=== PATIENT | female | born 1995 | race Caucasian/White ===

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

== ENCOUNTER 2017-06-19 22:05 | Emergency (ER) | payer MEDICAID ==
[~2017-06-19] VITALS: Ht 167.6 cm; Wt 60.0 kg
[~2017-06-19 22:05] MED LIST: DICL75TA PO
[2017-06-19 22:08] VITALS: BP 132/73; PULSE 95; RESP 16; TEMP 98; O2SAT 100
--- NOTE | 2017-06-19 22:22 | PD ---
HPI Chief Complaint: Injury Time Seen by Provider: 22:22 Travel History International Travel<30 days: No Contact w/Intl Traveler<30days: No Traveled to known affect area: No History of Present Illness HPI 21-year-old female presents emergency department with right posterior shoulder which started several days ago. Patient denies any specific injury but now that she is working at [employer] it is aggravated. Patient states pain is worse with certain movements, and worse first thing in the morning. Patient is mainly in the right posterior upper shoulder, not in the neck. Patient denies weakness or tingling in the right arm. Patient states she has been trying heat and ice with heat working somewhat better. She has also been taking ibuprofen with mild relief. Patient is here as it was worse after working today. Pain is currently about a 7 out of 10. She has no known drug allergies PFSH Past Medical History Diminished Hearing: No Medical other: Yes (Cerebral Palsy) Tetanus Vaccination: < 5 Years Influenza Vaccination: Yes ?: Not LMP: 06/19/2017 : 0 Past Surgical History Surgical History: No Previous Surgery Social History Alcohol Use: No Tobacco Use: Yes (1PPD) Substance Use: No Allergies-Medications (Allergen,Severity, Reaction): Coded Allergies: No Known Allergies (Unverified Adverse Reaction, Unknown, 06/19/17) Reported Meds & Prescriptions Reported Meds & Active Scripts Active Diclofenac Sodium DR (Diclofenac Sodium) 75 Mg Tabdr 75 Mg PO BID Review of Systems Except as stated in HPI: all other systems reviewed are Neg General / Constitutional: No: Fever Eyes: No: Visual changes HENT: No: Headaches Cardiovascular: No: Chest Pain or Discomfort Respiratory: No: Shortness of Breath Gastrointestinal: No: Abdominal Pain Genitourinary: No: Dysuria Musculoskeletal: Positive: Myalgias, Arthralgias, Limited ROM, Pain Skin: No Rash Neurologic: No: Weakness Psychiatric: No: Depression Endocrine: No: Polydipsia Hematologic/Lymphatic: No: Easy Bruising Physical Exam Narrative GENERAL: Patient appears in mild distress. SKIN: Warm and dry. Normal color. Normal turgor. No rash. HEAD: Atraumatic. Normocephalic. EYES: Pupils equal and round. No scleral icterus. No injection or drainage. ENT: No nasal bleeding or discharge. Mucous membranes pink and moist. Pharynx is clear. TMs are clear. No dental injury. NECK: Trachea midline. Patient has no bony tenderness or step-off. Range of motion of the neck is actually fairly normal. CARDIOVASCULAR: Regular rate and rhythm. RESPIRATORY: No accessory muscle use. Clear to auscultation. Breath sounds equal bilaterally. GASTROINTESTINAL: Abdomen soft, non-tender, nondistended. Hepatic and splenic margins not palpable. MUSCULOSKELETAL: Extremities without clubbing, cyanosis, or edema. No obvious deformities. Patient has soft tissue tenderness and muscle spasm in the right subscapularis muscle reproducing her symptoms. Range of motion is intact, but limited secondary to pain. Neurovascular exam of the right arm is intact and normal. NEUROLOGICAL: Awake and alert. No obvious cranial nerve deficits. Motor grossly within normal limits. Five out of 5 muscle strength in the arms and legs. Normal speech. PSYCHIATRIC: Appropriate mood and affect; insight and judgment normal. Data Data Last Documented VS Vital Signs Date Time Temp Pulse Resp B/P (MAP) Pulse Ox O2 Delivery O2 Flow Rate FiO2 06/19/17 22:08 98.0 95 16 132/73 (92) 100 Room Air MDM Medical Decision Making Medical Screen Exam Complete: Yes Emergency Medical Condition: Yes Differential Diagnosis Spasmodic torticollis. Muscle spasm. Shoulder strain. Narrative Course Radiographic imaging is not felt warranted based on my history and physical. Patient is treated with ibuprofen 600 mg 3 times daily #30. Patient also given Flexeril 5 mg up to 3 times daily as needed #15 per Patient can take extra strength Tylenol as well as discussed. Patient should use heat, stretching, and massage as discussed Diagnosis Primary Impression: Muscle spasm of right shoulder Referrals: [facility] Patient Instructions: Early Postoperative or Post Injury Shoulder Exercises (ED ), General Instructions, Muscle Spasm (ED), Spasmodic Torticollis (ED) Additional Instructions: Radiographic imaging is not felt warranted based on my history and physical. Patient is treated with ibuprofen 600 mg 3 times daily #30. Patient also given Flexeril 5 mg up to 3 times daily as needed #15 per Patient can take extra strength Tylenol as well as discussed. Patient should use heat, stretching, and massage as discussed Med/Other Pt SpecificInfo: Prescription(s) given Disposition: 01 DISCHARGE HOME Condition: Stable Julian Hernandez Jun 19, 2017 22:22
[2017-06-19] MEDS ORDERED: CYCL5TAB PO (22:40)
[2017-06-19] MEDS ORDERED: IBUP-232 PO (22:40)
== END 2017-06-19 23:03 | disposition home or self-care (01) ==
LOC: NEPD 22:05
DX: M62.838 Other muscle spasm (principal); F17.200 Nicotine dependence, unspecified, uncomplicated
CPT/HCPCS: 99283